=== PATIENT | female | born 1960 | race Caucasian/White ===

== ENCOUNTER → 2016-11-10 | Outpatient (CLI) | payer OTHER | LOC: FIMAGING 16:44 | PROVIDERS: ATTEND Midwife | DX: R93.8 Abnormal findings on diagnostic imaging of other specified body structures (principal); Z78.0 Asymptomatic menopausal state; Z85.3 Personal history of malignant neoplasm of breast ==

== ENCOUNTER 2017-10-02 16:18 | Observation (INO) | payer OTHER ==
--- NOTE | 2017-10-02 16:35 | CPEKG ---
Heart Rate: 63 RR Interval: 952 P-R Interval: 132 QRSD Interval: 94 QT Interval: 436 QTC Interval: 447 P [place]: 69 QRS [place]: 64 T Wave [place]: 16 EKG Severity - NORMAL ECG - EKG Impression: SINUS RHYTHM Electronically Signed By: Taqueria Schofield 02-Oct-2017 16:54:47
--- NOTE | 2017-10-02 16:51 | EDPHY ---
H & P Time Seen by Provider: 10/02/17 16:32 HPI/ROS: Chief complaint. Chest pain HPI. 57-year-old female presents emergency department with left chest pain that radiates to the back and left arm that began at 11 o'clock this morning. She has a history of Prinzmetal angina. She took 2 nitroglycerin without really any change in her symptoms. She feels exhausted and hard to walk. She had a cardiac catheterization 10 years ago that was apparently not quite normal but she did not get a stent. Her pain today is described as sharp and constant. There is no shortness of breath. It is worse with movement of her left arm but not worse with exertion or breathing. She had upper respiratory infection 2 weeks ago with a residual cough. No fever. No unusual leg pain or swelling. ROS Constitutional. no fever/chills, no weakness Eyes. no problems with vision ENT. no sore throat, no nasal drainage Cardiovascular. Left-sided chest pain Respiratory. no shortness of breath, no cough Abdominal. no abdominal pain, no nausea/vomiting, no diarrhea . no problems urinating MS. no calf pain/swelling, no neck/back pain, no joint pain Skin. no rash Lymph. no swollen glands Neuro. no headache, no dizziness, no difficulty walking or with speech Past Medical/Surgical History: Prinzmetal angina, cardiac catheterization, breast cancer with bilateral mastectomy Social History: , nonsmoker, no alcohol Smoking Status: Never smoked Physical Exam: General Appearance: Alert well-developed female mild distress vital signs are stable Eyes: Pupils equal and round no pallor or injection. ENT, Mouth: Mucous membranes are moist. Respiratory: There are no retractions, lungs are clear to auscultation. Cardiovascular: Regular rate and rhythm. Gastrointestinal: Abdomen is soft and nontender, no masses, bowel sounds normal. Neurological: Awake and alert, sensory and motor exams grossly normal. Skin: Warm and dry, no rashes. Musculoskeletal: Neck is supple nontender. Extremities symmetrical, full range of motion. Psychiatric: Patient is oriented X 3, there is no agitation. Constitutional: Initial Vital Signs Temperature (C) 37.0 C 10/02/17 16:24 Heart Rate 67 10/02/17 16:24 Respiratory Rate 18 10/02/17 16:24 Blood Pressure 119/72 10/02/17 16:24 O2 Sat (%) 97 10/02/17 16:24 O2 Delivery Mode Room Air Allergies/Adverse Reactions: morphine [Morphine] Allergy (Intermediate, Verified 04/01/09 15:29) PARANOID acetaminophen [From Vicodin] Allergy (Verified 01/13/10 14:10) PARANOID hydrocodone bitartrate [From Vicodin] Allergy (Verified 01/13/10 14:10) PARANOID Home Medications: Medication Instructions Recorded Amlodipine Besylate 10/02/17 Aspirin 10/02/17 Isosorbide Dinitrate 10/02/17 Tamoxifen Citrate 10/02/17 Medical Decision Making - Diagnostics EKG Interpretation: EKG interpreted by me shows normal sinus rhythm with normal interval and axis. QRS is normal. Slight T-wave inversion V2 and V3 and slight ST depression in the inferior leads as well as V6. No arrhythmia. The rate is 63 Review of an old EKG in our system from March [address] in leads to 3 and AVF. Likely there is no change also in lead V3. The slight ST depression that was seen in lead V6 was not present on the previous EKG Imaging Results: Imaging Impressions Chest X-Ray 10/02/17 16:48 Impression: No acute findings in the chest. Procedures: IV normal saline, monitor ED Course/Re-evaluation: Re-evaluation 5:25 p.m.--patient and I discussed imaging lab results. We discussed treatment plan I consulted and discussed case with Dr. Silver for Cardiology who recommends admission for continuing chest pain. He recommends IV Toradol in addition. I consulted discussed the case with Dr. Davison for hospitalist service who agrees to the admission Differential Diagnosis: Patient carries a history of Prinzmetal angina. There is no exertional to component to heard chest discomfort. She however does have EKG changes suggestive of vasospastic coronary disease. Her troponin is negative and no evidence for acute infarct at this point. Plan is observation - Data Points Laboratory Results: Laboratory Results 10/02/17 16:35 10/02/17 16:35 10/02/17 10/02/17 10/02/17 16:38 16:35 16:35 WBC RBC Hgb Hct MCV MCH MCHC RDW Plt Count MPV Neut % (Auto) Lymph % (Auto) Lane % (Auto) Eos % (Auto) Baso % (Auto) Nucleat RBC Rel Count Absolute Neuts (auto) Absolute Lymphs (auto) Absolute Monos (auto) Absolute Eos (auto) Absolute Basos (auto) Absolute Nucleated RBC Immature Gran % Immature Gran # D-Dimer < 0.27 ug/mLFEU ug/mLFEU (0.00-0.50) Sodium 139 mEq/L mEq/L (135-145) Potassium 3.8 mEq/L mEq/L (3.3-5.0) Chloride 102 mEq/L mEq/L (97-110) Carbon Dioxide 27 mEq/l mEq/l (22-31) Anion Gap 10 mEq/L mEq/L (8-16) BUN 13 mg/dL mg/dL (7-23) Creatinine 0.9 mg/dL mg/dL (0.6-1.0) Estimated GFR > 60 Glucose 112 mg/dL H mg/dL (70-100) Calcium 9.7 mg/dL mg/dL (8.5-10.4) POC Troponin I 0.00 ng/mL ng/mL (0.00-0.08) 10/02/17 16:35 WBC 9.51 10^3/uL H 10^3/uL (3.80-9.50) RBC 4.15 10^6/uL L 10^6/uL (4.18-5.33) Hgb 12.4 g/dL L g/dL (12.6-16.3) Hct 38.1 % % (38.0-47.0) MCV 91.8 fL fL (81.5-99.8) MCH 29.9 pg pg (27.9-34.1) MCHC 32.5 g/dL g/dL (32.4-36.7) RDW 12.8 % % (11.5-15.2) Plt Count 270 10^3/uL 10^3/uL (150-400) MPV 10.3 fL fL (8.7-11.7) Neut % (Auto) 55.6 % % (39.3-74.2) Lymph % (Auto) 29.9 % % (15.0-45.0) Lane % (Auto) 8.7 % % (4.5-13.0) Eos % (Auto) 4.4 % % (0.6-7.6) Baso % (Auto) 1.1 % % (0.3-1.7) Nucleat RBC Rel Count 0.0 % % (0.0-0.2) Absolute Neuts (auto) 5.29 10^3/uL 10^3/uL (1.70-6.50) Absolute Lymphs (auto) 2.84 10^3/uL 10^3/uL (1.00-3.00) Absolute Monos (auto) 0.83 10^3/uL H 10^3/uL (0.30-0.80) Absolute Eos (auto) 0.42 10^3/uL H 10^3/uL (0.03-0.40) Absolute Basos (auto) 0.10 10^3/uL 10^3/uL (0.02-0.10) Absolute Nucleated RBC 0.00 10^3/uL 10^3/uL (0-0.01) Immature Gran % 0.3 % % (0.0-1.1) Immature Gran # 0.03 10^3/uL 10^3/uL (0.00-0.10) D-Dimer Sodium Potassium Chloride Carbon Dioxide Anion Gap BUN Creatinine Estimated GFR Glucose Calcium POC Troponin I Medications Given: Discontinued Medications Ketorolac Tromethamine (Toradol) 30 mg IVP EDNOW ONE Stop: 10/02/17 18:22 Last Admin: 10/02/17 18:25 Dose: 30 mg Point of Care Test Results: Chemistry 10/02/17 16:38 POC Troponin I 0.00 ng/mL ng/mL (0.00-0.08) Departure - Departure Disposition: [facility] Inpatient Acute Clinical Impression: Chest pain Qualifiers: Chest pain type: unspecified Qualified Code(s): R07.9 - Chest pain, unspecified Condition: Good
[2017-10-02 16:54] LABS: PLATELET COUNT 270 10^3/uL (150-400)
[2017-10-02] MEDS ORDERED: KETOROLAC 30 MG/1 ML SDV IVP ONE (18:21)
[2017-10-02] MEDS ORDERED: ONDANSETRON DISINTEGRATING 4 MG TAB PO PRN (18:41)
[2017-10-02] MEDS ORDERED: ONDANSETRON 4 MG/2 ML VIAL IVP PRN (18:41)
[2017-10-02] MEDS ORDERED: ALPRAZolam 1 MG TAB PO PRN (20:18)
--- NOTE | 2017-10-02 20:24 | PDGENHP ---
History and Physical - Chief Complaint Acute chest pain - History of Present Illness Primary care provider: Oswald Primary juke box servicer: Dr. Gui Schuster Primary oncologist: Dr. Imani Pandey HPI: 57-year-old female presents with acute chest pain characterized as sharp pain located in her left upper back and left arm with onset of symptoms at 11: 00 a.m. On the day of presentation, duration continuous with intermittent spikes , mildly alleviated with sublingual nitroglycerin x2, with some associated anorexia and anxiety. The patient reports that the symptoms were initiated in the context of swimming, but she has been physically active in the days preceding this presentation and has not experienced other anginal symptoms. Approximately 2 weeks ago she was experiencing what she describes as "cold" like symptoms and continues to experience a nonproductive cough. She has otherwise been taking all of her home medications and denies any recent chest trauma. She does endorse that 3 days ago she was playing with full ball, and she did experience some right shoulder discomfort after throwing. History Information - Allergies/Home Medication List Allergies/Adverse Reactions: morphine [Morphine] Allergy (Intermediate, Verified 04/01/09 15:29) PARANOID hydrocodone bitartrate [From Vicodin] Allergy (Mild, Verified 10/02/17 19:09) PARANOID Home Medications: Aspirin [Aspirin 81mg (*)] 81 mg PO DAILY 10/02/17 [Last Taken 10/02/17 162mg] Herbals/Supplements -Info Only 1 ea PO DAILY 10/02/17 [Last Taken Unknown] Isosorbide Mononitrate [Imdur 30 mg (*)] 30 mg PO DAILY 10/02/17 [Last Taken 02/09] Tamoxifen Citrate 20 mg PO DAILY 10/02/17 [Last Taken 10/02/17] Vitamin B Complex [Vitamin B Complex (OTC)] 1 each PO DAILY 10/02/17 [Last Taken 10/02/17] amLODIPine BESYLATE [Norvasc 5 mg (*)] 2.5 mg PO BID 10/02/17 [Last Taken 08:00] I have personally reviewed and updated: family history, medical history, social history, surgical history - Past Medical History Additional medical history: Reported Prinzmetal's angina with last cardiac catheterization in 2008. Left breast ductal carcinoma in remission - Surgical History Additional surgical history: Bilateral mastectomy. Last cardiac catheterization 2008 - Family History Additional family history: Mother with breast cancer - Social History Smoking Status: Never smoked Alcohol Use: None Drug Use: None Additional social history: Physically active at baseline without anginal symptoms Review of Systems Review of Systems: ROS: 10pt was reviewed & negative except for what was stated in HPI & below Cardiac: Reports: chest pain Respiratory: Reports: cough Physical Exam Physical Exam: Temp Pulse Resp BP Pulse Ox 36.9 C 70 16 120/71 95 10/02/17 20:11 10/02/17 20:11 10/02/17 20:11 10/02/17 20:11 10/02/17 20:11 Constitutional: no apparent distress, appears nourished, not in pain Eyes: PERRL, anicteric sclera, EOMI Ears, Nose, Mouth, Throat: moist mucous membranes, hearing normal, ears appear normal, no oral mucosal ulcers Cardiovascular: regular rate and rhythym, no murmur, rub, or gallop, No edema Respiratory: no respiratory distress, no rales or rhonchi, clear to auscultation Gastrointestinal: normoactive bowel sounds, soft, non-tender abdomen, no palpable masses Skin: other (No vesicular lesions on chest), No abrasion, No rash Musculoskeletal: other (Full range of motion left shoulder without any pain induced, no tenderness to palpation over left pectoralis muscles or sternum, no tenderness to palpation over left latissimus dorsi or paraspinal muscles) Neurologic: AAOx3, sensation intact bilaterally, No weakness Psychiatric: not encephalopathic, thought process linear, anxious, No agitated Lab Data & Imaging Review 10/02/17 16:35 10/02/17 16:35 WBC 9.51 10^3/uL (3.80-9.50) H 10/02/17 16:35 RBC 4.15 10^6/uL (4.18-5.33) L 10/02/17 16:35 Hgb 12.4 g/dL (12.6-16.3) L 10/02/17 16:35 Hct 38.1 % (38.0-47.0) 10/02/17 16:35 MCV 91.8 fL (81.5-99.8) 10/02/17 16:35 MCH 29.9 pg (27.9-34.1) 10/02/17 16:35 MCHC 32.5 g/dL (32.4-36.7) 10/02/17 16:35 RDW 12.8 % (11.5-15.2) 10/02/17 16:35 Plt Count 270 10^3/uL (150-400) 10/02/17 16:35 MPV 10.3 fL (8.7-11.7) 10/02/17 16:35 Neut % (Auto) 55.6 % (39.3-74.2) 10/02/17 16:35 Lymph % (Auto) 29.9 % (15.0-45.0) 10/02/17 16:35 [place] % (Auto) 8.7 % (4.5-13.0) 10/02/17 16:35 Eos % (Auto) 4.4 % (0.6-7.6) 10/02/17 16:35 Baso % (Auto) 1.1 % (0.3-1.7) 10/02/17 16:35 Nucleat RBC Rel Count 0.0 % (0.0-0.2) 10/02/17 16:35 Absolute Neuts (auto) 5.29 10^3/uL (1.70-6.50) 10/02/17 16:35 Absolute Lymphs (auto) 2.84 10^3/uL (1.00-3.00) 10/02/17 16:35 Absolute Monos (auto) 0.83 10^3/uL (0.30-0.80) H 10/02/17 16:35 Absolute Eos (auto) 0.42 10^3/uL (0.03-0.40) H 10/02/17 16:35 Absolute Basos (auto) 0.10 10^3/uL (0.02-0.10) 10/02/17 16:35 Absolute Nucleated RBC 0.00 10^3/uL (0-0.01) 10/02/17 16:35 Immature Gran % 0.3 % (0.0-1.1) 10/02/17 16:35 Immature Gran # 0.03 10^3/uL (0.00-0.10) 10/02/17 16:35 D-Dimer < 0.27 ug/mLFEU (0.00-0.50) 10/02/17 16:35 Sodium 139 mEq/L (135-145) 10/02/17 16:35 Potassium 3.8 mEq/L (3.3-5.0) 10/02/17 16:35 Chloride 102 mEq/L (97-110) 10/02/17 16:35 Carbon Dioxide 27 mEq/l (22-31) 10/02/17 16:35 Anion Gap 10 mEq/L (8-16) 10/02/17 16:35 BUN 13 mg/dL (7-23) 10/02/17 16:35 Creatinine 0.9 mg/dL (0.6-1.0) 10/02/17 16:35 Estimated GFR > 60 10/02/17 16:35 Glucose 112 mg/dL (70-100) H 10/02/17 16:35 Calcium 9.7 mg/dL (8.5-10.4) 10/02/17 16:35 POC Troponin I 0.00 ng/mL (0.00-0.08) 10/02/17 16:38 Visualized and Interpreted Chest x-ray results: Yes Chest X-Ray results: no infiltrate Visualized and Interpreted EKG results: Yes EKG Interpretation: Positive for: other (Less than [address] depressions in inferolateral leads with T-wave inversion in lead V2) Assessment & Plan Assessment: 57-year-old female presents with acute chest pain in the setting of history of Prinzmetal angina Plan: 1. Chest pain. Acute, new problem this provider, further workup indicated. Potential etiologies include Prinzmetal angina versus pericarditis with what sounds like recent viral precipitant verses musculoskeletal causes and recent [employer] ball game -monitor on telemetry -cycle cardiac enzymes -current chest discomfort is reduced down to 1/10, if escalates overnight, treat with sublingual nitroglycerin and if mildly alleviated, start nitroglycerin drip -patient is averse to morphine products, she would prefer to utilize Xanax as needed -avoid NSAIDs at the present time given the potential of cardiac ischemia -continue isosorbide mononitrate and aspirin 81 -discussed with Dr. Mio Silver, he reports that Cardiology will consult in the morning, they will review the cardiac catheterization from 2008 and determine whether further cardiac risk stratification is indicated after the patient rules out, medication management and modification may be in order 2. Anxiety. As noted above, treat with Xanax as needed 3. History of breast cancer. Reviewed outside records including 04/06/[address] Charles Chase, he reports that the patient did receive a nitroglycerin drip perioperatively during her mastectomy and lymph node dissection, tolerated procedure and nitro drip Diet. Regular, NPO in a.m. In case further cardiac testing Prophylaxis. Low risk patient, SCDs Code. Full Disposition. Anticipated date of discharge 10/03, pending further workup as outlined above.
[2017-10-02] MEDS ORDERED: ALPRAZolam 0.25 MG TAB PO PRN (22:57)
[2017-10-03 03:49] LABS: PLATELET COUNT 261 10^3/uL (150-400)
[2017-10-03] MEDS ORDERED: Herbals/Supplements -Info Only PO SCH (09:00)
[2017-10-03] MEDS ORDERED: TAMOXIFEN CITRATE 10 MG TAB PO SCH (09:00)
[2017-10-03] MEDS ORDERED: VITAMIN B COMPLEX 1 EA CAP/TAB PO SCH (09:00)
[2017-10-03] MEDS ORDERED: ASPIRIN 81 MG CHEWABLE TAB PO SCH (09:00)
[2017-10-03] MEDS ORDERED: ISOSORBIDE MONONITRATE 30 MG TAB.SR PO SCH (09:00)
[2017-10-03 15:09] VITALS: BP 94/71
--- NOTE | 2017-10-03 15:22 | PDCARCONS ---
Cardiology Consult Reason for Consult: Chest pain with exertion Chief Complaint: Chest pain with exertion Requesting Physician: Hospitalist History of Present Illness: Lupis is a 57-year-old female that has been a patient of mine for many years. Lupis has a history of Prinzmetal's angina, her last cardiac catheterization was in 2008. Lupis presented to the Emergency Department yesterday with acute chest pain localized to the left chest and left back that developed while she was swimming around 11AM. She described her pain as a sharp sensation that was less severe that the chest pain she experience prior to cath in 2008. Lupis took a Nitroglycerin around 12PM after she finished swimming. The Nitro slightly improved her pain. She then went to her son's baseball game and felt very fatigued and did not have an appetite. Her chest pain remained present so she decided to go to the Emergency Department. Lupis had a negative workup in the ED. Of note, Lupis was playing [place] ball 2 days prior to developing left sided chest, back, and shoulder pain. On assessment today the patient is no longer symptomatic. She believes her discomfort may be related to muscle soreness from playing [place] ball. History Information - Allergies/Home Medication List Allergies/Adverse Reactions: morphine [Morphine] Allergy (Intermediate, Verified 04/01/09 15:29) PARANOID hydrocodone bitartrate [From Vicodin] Allergy (Mild, Verified 10/02/17 19:09) PARANOID Home Medications: ALPRAZolam [Alprazolam] 0.125 - 0.25 mg PO HS PRN 10/02/17 [Last Taken Unknown] Aspirin [Aspirin 81mg (*)] 81 mg PO DAILY 10/02/17 [Last Taken 10/02/17 162mg] Herbals/Supplements -Info Only 1 ea PO DAILY 10/02/17 [Last Taken Unknown] Isosorbide Mononitrate [Imdur 30 mg (*)] 30 mg PO DAILY 10/02/17 [Last Taken 02/09] Tamoxifen Citrate 20 mg PO DAILY 10/02/17 [Last Taken 10/02/17] Vitamin B Complex [Vitamin B Complex (OTC)] 1 each PO DAILY 10/02/17 [Last Taken 10/02/17] amLODIPine BESYLATE [Norvasc 5 mg (*)] 2.5 mg PO BID 10/02/17 [Last Taken 08:00] I have personally reviewed and updated: family history, medical history, social history, surgical history Past Medical History: Prinzmetal's angina with last cardiac catheterization in 2008. Left breast ductal carcinoma (in remission). - Surgical History Reports: mastectomy Additional surgical history: Bilateral mastectomy. Last cardiac catheterization in 2008. - Family History Positive for: cancer (Mother with breast cancer) - Social History Smoking Status: Never smoked Alcohol Use: None Drug Use: None Additional social history: Physically active at baseline without anginal symptoms Cardiac History - Cardiac History Past Cardiac History: OTHER (Prinzmetal's angina) Cardiac Risk Factors: none Timing/Duration: Hours Severity: moderate Location: shoulder, back, other (Left chest) Activities at Onset: activity (Swimming) Modifying Factors: improves with: nitroglycerin Associated Symptoms: loss of appetite, malaise TORRES Risk Evaluation age greater or equal to 65: no greater or equal to 3 CAD risk factors: no known CAD(stenosis greater or eqaul to 50%): no ASA use in past 7 days: yes severe angina(greater or equal to 2 episodes in 24hrs): no EKG ST changes greater or equal to 0.5mm: no positive cardiac marker: no Total Score: 1 TORRES Score: 4.7% risk Physical Exam Physical Exam: Temp Pulse Resp BP Pulse Ox 36.9 C 72 16 94/71 L 95 10/03/17 15:08 10/03/17 15:08 10/03/17 15:08 10/03/17 15:08 10/03/17 15:08 Constitutional: no apparent distress, appears nourished, not in pain Eyes: PERRL, EOMI Ears, Nose, Mouth, Throat: moist mucous membranes Cardiovascular: regular rate and rhythym, no murmur, rub, or gallop Peripheral Pulses: 2+: carotid (R), carotid (L), femoral (R), femoral (L), dorsalis-pedis (R), dorsalis-pedis (L) Respiratory: no respiratory distress, no rales or rhonchi, clear to auscultation Gastrointestinal: normoactive bowel sounds, soft, non-tender abdomen Skin: warm, normal color Musculoskeletal: no muscle tenderness Neurologic: AAOx3 Psychiatric: interacting appropriately Lab and Imaging 10/03/17 03:34 10/03/17 03:34 WBC 7.46 10^3/uL (3.80-9.50) 10/03/17 03:34 RBC 3.99 10^6/uL (4.18-5.33) L 10/03/17 03:34 Hgb 12.3 g/dL (12.6-16.3) L 10/03/17 03:34 Hct 36.5 % (38.0-47.0) L 10/03/17 03:34 MCV 91.5 fL (81.5-99.8) 10/03/17 03:34 MCH 30.8 pg (27.9-34.1) 10/03/17 03:34 MCHC 33.7 g/dL (32.4-36.7) 10/03/17 03:34 RDW 12.6 % (11.5-15.2) 10/03/17 03:34 Plt Count 261 10^3/uL (150-400) 10/03/17 03:34 MPV 10.1 fL (8.7-11.7) 10/03/17 03:34 Neut % (Auto) 33.5 % (39.3-74.2) L 10/03/17 03:34 Lymph % (Auto) 45.2 % (15.0-45.0) H 10/03/17 03:34 [place] % (Auto) 12.3 % (4.5-13.0) 10/03/17 03:34 Eos % (Auto) 7.4 % (0.6-7.6) 10/03/17 03:34 Baso % (Auto) 1.5 % (0.3-1.7) 10/03/17 03:34 Nucleat RBC Rel Count 0.0 % (0.0-0.2) 10/03/17 03:34 Absolute Neuts (auto) 2.50 10^3/uL (1.70-6.50) 10/03/17 03:34 Absolute Lymphs (auto) 3.37 10^3/uL (1.00-3.00) H 10/03/17 03:34 Absolute Monos (auto) 0.92 10^3/uL (0.30-0.80) H 10/03/17 03:34 Absolute Eos (auto) 0.55 10^3/uL (0.03-0.40) H 10/03/17 03:34 Absolute Basos (auto) 0.11 10^3/uL (0.02-0.10) H 10/03/17 03:34 Absolute Nucleated RBC 0.00 10^3/uL (0-0.01) 10/03/17 03:34 Immature Gran % 0.1 % (0.0-1.1) 10/03/17 03:34 Immature Gran # 0.01 10^3/uL (0.00-0.10) 10/03/17 03:34 D-Dimer < 0.27 ug/mLFEU (0.00-0.50) 10/02/17 16:35 Sodium 145 mEq/L (135-145) 10/03/17 03:34 Potassium 3.7 mEq/L (3.3-5.0) 10/03/17 03:34 Chloride 109 mEq/L (97-110) 10/03/17 03:34 Carbon Dioxide 25 mEq/l (22-31) 10/03/17 03:34 Anion Gap 11 mEq/L (8-16) 10/03/17 03:34 BUN 12 mg/dL (7-23) 10/03/17 03:34 Creatinine 0.9 mg/dL (0.6-1.0) 10/03/17 03:34 Estimated GFR > 60 10/03/17 03:34 Glucose 99 mg/dL (70-100) 10/03/17 03:34 Calcium 9.5 mg/dL (8.5-10.4) 10/03/17 03:34 Magnesium 2.3 mg/dL (1.6-2.3) 10/03/17 03:34 Total Bilirubin 0.5 mg/dL (0.1-1.4) 10/03/17 03:34 AST 23 IU/L (14-46) 10/03/17 03:34 ALT 37 IU/L (9-52) 10/03/17 03:34 Alkaline Phosphatase 38 IU/L (38-126) 10/03/17 03:34 POC Troponin I 0.00 ng/mL (0.00-0.08) 10/02/17 16:38 Troponin I < 0.012 ng/mL (0.000-0.034) 10/03/17 03:34 Total Protein 6.4 g/dL (6.3-8.2) 10/03/17 03:34 Albumin 3.7 g/dL (3.5-5.0) 10/03/17 03:34 Visualized and Interpreted Chest x-ray results: Yes Chest X-ray Interpretation: normal Visualized and Interpreted EKG results: Yes EKG additional interpertation: Normal sinus rhythm with minimal ST depression diffusely. This is unchanged compared to prior EKG. Telemetry: I reviewed the raw data from the rhythm strips. There was no significant tachy or mitchell dysrhythmia present during overnight monitoring. Echocardiogram: I interpreted the patient's stress echocardiogram. The patient exercised for 11: 40. She had normal exercise tolerance and normal blood pressure response to exercise. Her EKG showed normal sinus rhythm with 2mm of horizontal ST depression with exercise. The EKG portion is inconclusive secondary to her baseline EKG changes. Please see the echo report for full details. A/P Assessment: Lupis is asymptomatic today. She has not had a cardiac workup in quite sometime. I recommended that she have a stress echocardiogram to evaluate her heart rate and blood pressure response to exercise as well as rule out coronary obstruction. Her stress echo showed no segmental wall motion abnormalities at rest or stress. She had no arrhythmias noted. Given that she is asymptomatic and passed her stress echo, I believe her chest pain is musculoskeletal pain related to recent [place] ball game. Plan: The patient is doing well from a cardiac standpoint and is asymptomatic. I think it is safe for her to be discharged home without further cardiac testing. The patient knows to present to the emergency department immediately if she experiences chest pain/pressure/tightness, syncope, near-syncope, or other cardiac symptoms of concern prior to her next visit.
--- NOTE | 2017-10-03 15:48 | CPR ---
[f rep st] NONINVASIVE CARDIAC PROCEDURE REPORT DATE OF PROCEDURE: 10/03/2017 PROCEDURE: Stress echocardiogram. INDICATION: The patient is a 57-year-old female with a history of Prinzmetal angina, who presented t o the [facility] with left-sided chest pain. She is very active and has been exercising regularly with out discomfort. PROCEDURE IN DETAIL: Consent was obtained, and the patient was placed on continuous telemetry. Her resting EKG revealed sinus bradycardia with heart rate of [address] depression. The patient exercised for 11 minutes and 40 seconds without any associated symptoms. She did develop [address] depression in the anterior and lateral leads 6 minutes into exercise. Her ST changes persis stan throughout the exercise phase and returned to baseline 5 minutes into recovery. Again, she was c hest pain free throughout the procedure. PLAN: A positive exercise treadmill test. Echo reading will be reported separately. /[id number]/MODL
--- NOTE | 2017-10-03 16:14 | ECHO ---
[email or web address] [address] [address] Main: [phone] Fax: Transthoracic Echocardiogram Name: EUSEBIA HARRIS MR#: [id number] Study Date: 10/03/2017 Study Time: 01:27 PM Date of : 1960 Age: 57 year(s) Height: 154.9 cm (61 in.) Weight: 75.3 kg (166 lb.) BSA: 1.75 m2 Gender: Female Examination: Echo Indication: Chest Pain Image Quality: Contrast: Requested by: Ana Mccann BP: 100 mmHg/67 mmHg Heart Rate: Rhythm: Indication: Chest Pain Procedure [employer] Director: Meng Coffey RDCS Reading Physician: Gui Schuster MD Requesting Provider: Conclusions: The patient had no resting segmental wall motion abnormalities at rest and all segments augmented normally with an exercise load. There is no evidence of ischemia on the basis of echo criteria. The EKG with exersice was abnormal but inconclusive because of resting EKG abnormalities. this increases slightly the risk of a false negative study. Measurements: Chambers Valvular Assessment AV/MV Valvular Assessment TV/PV Normal Normal Normal Name Value Range Name Value Range Name Value Range Ao [place]ion (MM): 2.5 cm (2.2 cm-3.7 AV Vmax: 0.85 m/s (1 m/s-1.7 TR Vmax: 2.88 mm/s ( - ) cm) m/s) TR PGmax: 33 mmHg ( - ) IVSd (2D): 0.8 cm (0.6 cm-1.1 AV maxP mmHg ( - ) syst. PAP: 38 mmHg ( - ) cm) LVOT Vmax: 0.50 m/s (0.7 m/s-1.1 PV Vmax: 0.80 m/s (0.6 m/s-0.9 LVDd (2D): 3.8 cm (3.9 cm-5.3 m/s) m/s) cm) MV E Vmax: 0.58 m/s ( - ) PV PGmax: 3 mmHg ( - ) LVDs (2D): 2.3 cm (2.1 cm-4 MV A Vmax: 0.44 m/s ( - ) cm) MV E/A: 1.32 ( - ) LVPWd (2D): 1.1 cm ( - ) LVEF (2D): 70 (>=54 %) Continued Measurements: Valvular Assessment AV/MV Valvular Assessment TV/PV Name Value Name Value MV E' Septal: 0.06 m/s CVP (est.): 5 mmHg MV E/E' Septal: 9.40 MV E/E' Lateral: 8.20 Patient: EUSEBIA HARRIS Study Date: 10/03/2017 Page 1 of 2 01:27 PM Findings: Left Ventricle: Normal size left ventricle. No LV hypertrophy. Normal global systolic LV function. EF is 70 %. No regional wall motion abnormality. Right Ventricle: Normal size right ventricle. Normal RV function. Left Atrium: The left atrium is normal in size. Right Atrium: The right atrium is normal in size. Mitral Valve: The mitral valve is normal in appearance. Aortic Valve: The aortic valve is normal in appearance and function. Tricuspid Valve: The tricuspid valve is normal in appearance and function. Pulmonic Valve: The pulmonic valve is normal in appearance and function. Aorta: The aorta is normal. Pericardium: No pericardial effusion. Exam Comments: Implants. (No Signature Object) Patient: EUSEBIA HARRIS Study Date: 10/03/2017 Page 2 of 2 01:27 PM [id number]
--- NOTE | 2017-10-03 16:16 | ECHO ---
[email or web address] [place] [id number] Main: [phone] Fax: Stress Echocardiogram Name: EUSEBIA HARRIS MR#: [id number] Study Date: 10/03/2017 Study Time: 02:35 PM Date of : 1960 Age: 57 year(s) Height: 154.9 cm (61 in.) Weight: 52.62 kg (116 lb.) BSA: 1.5 m2 Gender: Female Examination: Stress Echo Indication: CP Image Quality: Adequate Contrast: Requested by: Ana Mccann Heart Rate: Rhythm: BP: / Procedure Staff Induction Coordination Power Engineer: Antonieta Willams [facility] Reading Physician: Gui Schuster MD Requesting Provider: Stress Details Type of Stress: Ruperto Device: Treadmill BP AT Rest: 98/70 BP Max: 110/68 BP Recovery: 102/68 Target HR: 169 bpm Achieved: Max HR: 159 bpm Conclusions: Findings: Stress Echo Findings: (No Signature Object) Patient: EUSEBIA HARRIS Study Date: 10/03/2017 Page 1 of 1 02:35 PM [id number]
--- NOTE | 2017-10-03 18:11 | PDDCSUM ---
Discharge Summary Discharge Summary: DISCHARGE SUMMARY FOLLOW-UP ITEMS: Discuss non-cardiopulmonary causes of chest pain with new primary care provider and reassess symptoms DATE OF ADMISSION: 10/02/2017 DATE OF DISCHARGE: 10/03/2017 DISCHARGE DIAGNOSES: 1. Acute chest pain 2. History of Prinzmetal's angina CONSULTATIONS: Cardiology PROCEDURES / IMAGING: Stress echocardiogram demonstrating no abnormalities CHIEF COMPLAINT: Acute chest pain SUBJECTIVE: Patient is feeling well at time discharge, symptoms have abated PHYSICAL EXAM ON DISCHARGE: Systolic blood pressure 95, heart rate 60, afebrile overnight, satting well on room air, alert awake oriented x3, no apparent distress, pain level 0/10 LABS ON DISCHARGE: Troponin negative x3, D-dimer negative, liver panel unremarkable, white blood cell count 7500 HOSPITAL COURSE BY PROBLEM: The patient presented with acute chest pain and was ruled out for acute coronary syndrome with negative troponin x3, no ischemic changes on EKG, and was ruled out for obstructive coronary causes of chest pain with a negative stress echocardiogram. She was ruled out for pulmonary embolism with a negative D-dimer. She was seen in consultation by Cardiology, and Dr. Gui Schuster did not feel as if the cause of the patient's underlying chest discomfort was secondary to vasospasm. It was his impression that the discomfort was secondary to musculoskeletal causes, and we advised that the patient utilize as needed Tylenol, ibuprofen, heat pad, and other non pharmacologic methods of pain control if she experiences ongoing discomfort of this nature. I recommended that she establish care with a primary care provider and reassess symptoms moving forward. She will be continued on her home medications for her history of Prinzmetal's angina, which consist of long- acting nitrate, calcium channel jose, aspirin 81 mg daily. DISCHARGE MEDICATIONS: Please see official discharge medication reconciliation sheet in chart , continue home medications without changes. DISCHARGE INSTRUCTIONS: Please establish care with primary care provider, follow up Dr. Gui Schuster as needed.
== END 2017-10-03 18:33 | disposition home or self-care (01) ==
LOC: F2W 20:33
PROVIDERS: ADMIT Internal Medicine; ATTEND Internal Medicine
DX: R07.9 Chest pain, unspecified (principal); Z85.3 Personal history of malignant neoplasm of breast
CPT/HCPCS: 71045; 93005; 93306; 93350; G0378; 84484-PO; 96374; J1885